=== PATIENT | female | born 2000 | race Caucasian/White ===

== ENCOUNTER → 2025-08-07 13:45 | Outpatient (REF) | payer OTHER, SELFPAY | LOC: HWRAD 13:45 | PROVIDERS: ATTENDING PHYSICIAN Chiropractor; FAMILY PHYSICIAN Family Medicine | DX: R07.82 Intercostal pain (principal); M53.2X7 Spinal instabilities, lumbosacral region | CPT/HCPCS: 71111; 72110 ==